=== PATIENT | female | born 1990 | race Caucasian/White ===

== ENCOUNTER 2019-12-12 11:51 | Emergency (ER) | payer SELFPAY ==
--- NOTE | 2019-12-12 12:39 | ER Document Report ---
ED General - General Chief Complaint: Possible Overdose Stated Complaint: POSSIBLE OVERDOSE Time Seen by Provider: 12/12/19 12:07 Primary Care Provider: VIVIENNE GARLAND MD [Primary Care Provider] - Follow up as needed Mode of Arrival: Medic Information source: Patient, Emergency Med Personnel Notes: 29-year-old female presents emergency department with history of anxiety depression and trichotillomania for an overdose. Patient reports she took 800 mg of trazodone 30 mg of meloxicam and 10 mg of Flexeril at approximately 10:00 today. She reports she was not trying to kill himself she was trying to get the high feel numb. Patient reports she is having problems with her ex-. She also reports her 2-year-old daughter would not talk to her today on the phone. She reports her ex- and daughter are living in [place]. Patient reports she is living with a roommate and Dr. Vivienne Quick. Patient reports he is a provider at [employer] [facility] and yesterday he changed her medications to Abilify and Effexor. She reports she took the meds to overdose with from her roommate. 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 She reports she was clean for 2 years. She reports approximately 3 months ago she started taking gabapentin a muscle relaxer and some cough syrup. Patient's received charcoal from EMS and 500 L LR. Her words are slurred and she is confused to the dates. Respiratory rate even unlabored. Patient reports she is hungry now requesting food. - HPI Onset: This morning Onset/Duration: Sudden Quality of pain: No pain Associated symptoms: None Exacerbated by: Denies Relieved by: Denies Similar symptoms previously: Yes Recently seen / treated by doctor: Yes - Related Data Allergies/Adverse Reactions: latex Adverse Reaction (Verified 12/12/19 16:32) Latex, Natural Rubber Adverse Reaction (Verified 12/12/19 16:32) Past Medical History - General Information source: Patient Last Menstrual Period: last week - Social History Smoking Status: Current Every Day Smoker Cigarette use (# per day): No - Vapes nicotine Frequency of alcohol use: None Drug Abuse: None Lives with: Friend Family History: Other - Mother with trichotillomania Patient has suicidal ideation: No - Patient denies Patient has homicidal ideation: No Psychiatric Medical History: Reports: Hx Anxiety, Hx Depression, Other - Trichotillomania Past Surgical History: Reports: Hx Section Review of Systems - Review of Systems Notes: Review HPI for review of systems., All other systems negative Physical Exam - Vital signs Vitals: Resp BP Pulse Ox 22 H 88/58 L 100 12/12/19 13:01 12/12/19 13:01 12/12/19 13:01 - General General appearance: Alert In distress: None - HEENT Head: Normocephalic, Atraumatic Eyes: Normal Conjunctiva: Normal Extraocular movements intact: Yes Pupils: PERRL Pharynx: Normal. No: Erythema, Tonsillar hypertrophy Neck: Normal, Supple. No: Lymphadenopathy - Respiratory Respiratory status: No respiratory distress Chest status: Nontender Breath sounds: Normal Chest palpation: Normal - Cardiovascular Rhythm: Regular Heart sounds: Normal auscultation Murmur: No - Abdominal Inspection: Normal Distension: No distension Bowel sounds: Normal Tenderness: Nontender Organomegaly: No organomegaly - Back Back: Normal, Nontender - Extremities General upper extremity: Normal ROM, Normal strength General lower extremity: Normal ROM, Normal strength - Neurological Neuro grossly intact: Yes Cognition: Normal Orientation: AAOx4 [place] Coma Scale Eye Opening: Spontaneous Jil Coma Scale Verbal: Oriented Jil Coma Scale Motor: Obeys Commands [place] Coma Scale Total: 15 Speech: Normal Cranial nerves: Normal Sensory: Normal - Psychological Associated symptoms: Normal affect, Normal mood - Skin Skin Temperature: Warm Skin Moisture: Dry Skin Color: Normal Location of irregularity: Scalp - Trichotillomania Course - Re-evaluation Re-evalutation: 12/12/19 12:50 29-year-old female presents with overdose of trazodone meloxicam and Flexeril. Poison control was contacted spoke with Filomena at [phone]. She advises cardiac monitoring EKG labs. She also advises ABG and lactate should patient start having abdominal pain and nausea and vomiting. Otherwise repeat acetami nophen level 4 hours post ingestion which would be around 1430. 12/12/19 Patient has been resting all day. Her blood pressure will drop when she is sound asleep but when patient is aroused it will become increased. Laboratory 12/12/19 12/12/19 12/12/19 12:00 12:00 12:46 WBC 4.8 RBC 4.56 Hgb 14.7 Hct 42.5 MCV 93 MCH 32.1 MCHC 34.5 RDW 13.2 Plt Count 169 Lymph % (Auto) 25.2 [place] % (Auto) 6.8 Eos % (Auto) 1.6 Baso % (Auto) 0.4 Absolute Neuts (auto) 3.2 Absolute Lymphs (auto) 1.2 Absolute Monos (auto) 0.3 Absolute Eos (auto) 0.1 Absolute Basos (auto) 0.0 Seg Neutrophils % 66.0 Sodium Potassium Chloride Carbon Dioxide Anion Gap BUN Creatinine Est GFR ( Amer) Est GFR (MDRD) Non-Af Glucose Calcium Total Bilirubin Direct Bilirubin Neonat Total Bilirubin Neonat Direct Bilirubin Neonat Indirect Bili AST ALT Alkaline Phosphatase Total Protein Albumin Serum HCG, Qual Urine Color YELLOW Urine Appearance CLEAR Urine pH 6.0 Ur Specific [place] 1.006 Urine Protein NEGATIVE Urine Glucose (UA) NEGATIVE Urine Ketones NEGATIVE Urine Blood NEGATIVE Urine Nitrite NEGATIVE Urine Bilirubin NEGATIVE Urine Urobilinogen NEGATIVE Ur Leukocyte Esterase NEGATIVE Urine WBC (Auto) 1 Urine RBC (Auto) 0 Squamous Epi Cells Auto <1 Urine Ascorbic Acid NEGATIVE Salicylates Urine Opiates Screen NEGATIVE Urine Methadone Screen NEGATIVE Acetaminophen Ur Barbiturates Screen NEGATIVE Ur Phencyclidine Scrn NEGATIVE Ur Amphetamines Screen NEGATIVE U Benzodiazepines Scrn UNCONFIRMED POSITIVE Urine Cocaine Screen NEGATIVE U Marijuana (THC) Screen UNCONFIRMED POSITIVE Serum Alcohol 12/12/19 12/12/19 12/12/19 12:46 12:46 17:35 WBC RBC Hgb Hct MCV MCH MCHC RDW Plt Count Lymph % (Auto) [place] % (Auto) Eos % (Auto) Baso % (Auto) Absolute Neuts (auto) Absolute Lymphs (auto) Absolute Monos (auto) Absolute Eos (auto) Absolute Basos (auto) Seg Neutrophils % Sodium 141.3 Potassium 4.0 Chloride 103 Carbon Dioxide 29 Anion Gap 9 BUN 9 Creatinine 0.79 Est GFR ( Amer) > 60 Est GFR (MDRD) Non-Af > 60 Glucose 65 L Calcium 9.5 Total Bilirubin 0.5 Direct Bilirubin 0.1 Neonat Total Bilirubin Not Reportable Neonat Direct Bilirubin Not Reportable Neonat Indirect Bili Not Reportable AST 22 ALT 15 Alkaline Phosphatase 60 Total Protein 6.9 Albumin 4.6 Serum HCG, Qual NEGATIVE Urine Color Urine Appearance Urine pH Ur Specific [place] Urine Protein Urine Glucose (UA) Urine Ketones Urine Blood Urine Nitrite Urine Bilirubin Urine Urobilinogen Ur Leukocyte Esterase Urine WBC (Auto) Urine RBC (Auto) Squamous Epi Cells Auto Urine Ascorbic Acid Salicylates < 1.0 L Urine Opiates Screen Urine Methadone Screen Acetaminophen < 10 L < 10 L Ur Barbiturates Screen Ur Phencyclidine Scrn Ur Amphetamines Screen U Benzodiazepines Scrn Urine Cocaine Screen U Marijuana (THC) Screen Serum Alcohol < 10 12/12/19 22:31 Patient resting quietly. Arouses easily to any verbal stimuli. Responds appropriately. 12/12/19 23:37 Patient continues to rest, arouses easily to verbal stimuli. Report given to [facility] Second EKG obtained with no ST elevation no T wave inversion QTC within normal l imits. HR 91 ND 156 QRSD 82 QT 372 QTc 458 - Vital Signs Vital signs: Temp Pulse Resp BP Pulse Ox 98.4 F 17 81/47 L 97 12/12/19 19:37 12/12/19 20:30 12/12/19 20:30 12/12/19 20:30 - Laboratory Result Diagrams: 12/12/19 12:46 12/12/19 12:46 Laboratory results interpreted by me: 12/12/19 12/12/19 12:46 17:35 Glucose 65 L Salicylates < 1.0 L Acetaminophen < 10 L < 10 L Discharge - Discharge Clinical Impression: Overdose Qualifiers: Encounter type: initial encounter Injury intent: undetermined intent Qualified Code(s): T50.904A - Poisoning by unspecified drugs, medicaments and biological substances, undetermined, initial encounter Condition: Stable Disposition: PSYCH HOSP/UNIT Referrals: VIVIENNE GARLAND MD [Primary Care Provider] - Follow up as needed
[2019-12-12 13:04] LABS: ABSOLUTE EOSINOPHILS # (AUTO) 0.1 10^3/uL (0.0-0.6); ABSOLUTE LYMPHOCYTES (AUTO) 1.2 10^3/uL (0.5-4.7); ABSOLUTE MONOCYTES (AUTO) 0.3 10^3/uL (0.1-1.4); ABSOLUTE NEUT (AUTO) 3.2 10^3/uL (1.7-8.2); BASOPHILS % (AUTO) 0.4 % (0-2); EOSINOPHILS % (AUTO) 1.6 % (0-6); HEMATOCRIT 42.5 % (36.0-47.0); HEMOGLOBIN 14.7 g/dL (12.0-15.5); LYMPHOCYTES % (AUTO) 25.2 % (13-45); MEAN CORPUSCULAR HEMOGLOBIN 32.1 pg (27.0-33.4); MEAN CORPUSCULAR HGB CONC 34.5 g/dL (32.0-36.0); MEAN CORPUSCULAR VOLUME 93 fl (80-97); MONOCYTES % (AUTO) 6.8 % (3-13); PLATELET COUNT 169 10^3/uL (150-450); RED BLOOD COUNT 4.56 10^6/uL (3.72-5.28); RED CELL DISTRIBUTION WIDTH 13.2 % (11.5-14.0); TOTAL CELLS COUNTED % (AUTO) 100 %; WHITE BLOOD COUNT 4.8 10^3/uL (4.0-10.5)
[2019-12-12 13:31] LABS: APPEARANCE,URINE CLEAR; BILIRUBIN,URINE NEGATIVE (NEGATIVE); COLOR,URINE YELLOW; GLUCOSE, URINE NEGATIVE (NEGATIVE); KETONES,URINE NEGATIVE (NEGATIVE); LEUKOCYTE ESTERASE,URINE NEGATIVE (NEGATIVE); NITRITE,URINE NEGATIVE (NEGATIVE); PROTEIN,URINE NEGATIVE (NEGATIVE); URINE SPECIFIC GRAVITY 1.006; UROBILINOGEN,URINE NEGATIVE mg/dL (<2.0)
[2019-12-12 13:40] LABS: ALBUMIN 4.6 g/dL (3.5-5.0); ALKALINE PHOSPHATASE 60 U/L (38-126); ANION GAP 9 (5-19); ASPARTATE AMINO TRANSFERASE 22 U/L (14-36); BILIRUBIN,DIRECT 0.1 mg/dL (0.0-0.4); BILIRUBIN,TOTAL 0.5 mg/dL (0.2-1.3); BLOOD UREA NITROGEN 9 mg/dL (7-20); CALCIUM 9.5 mg/dL (8.4-10.2); CARBON DIOXIDE 29 mmol/L (22-30); CHLORIDE 103 mmol/L (98-107); GLUCOSE 65 mg/dL (75-110); TOTAL PROTEIN 6.9 g/dL (6.3-8.2)
[2019-12-12 13:41] LABS: ACETAMINOPHEN < 10 ug/mL (10-30); ALCOHOL < 10 mg/dL (NONE DETECTED); SALICYLATE < 1.0 mg/dL (2.0-20.0)
[2019-12-12 13:47] LABS: URINE AMPHETAMINES SCREEN NEGATIVE; URINE BARBITURATES SCREEN NEGATIVE; URINE COCAINE SCREEN NEGATIVE; URINE METHADONE SCREEN NEGATIVE; URINE PHENCYCLIDINE SCREEN NEGATIVE
[2019-12-12 13:58] LABS: URINE BENZODIAZEPINES SCREEN UNCONFIRMED POSITIVE
[2019-12-12 13:59] LABS: URINE MARIJUANA (THC) SCREEN UNCONFIRMED POSITIVE
--- NOTE | 2019-12-12 15:01 | EKG REPORT ---
SEVERITY:- ABNORMAL ECG - SINUS RHYTHM PROBABLE LEFT ATRIAL ABNORMALITY INFERIOR Q WAVES, PROBABLY NORMAL VARIATION BORDERLINE PROLONGED QT INTERVAL NONSPECIFIC ST-T CHANGES DIFFUSE : Confirmed by: Edgar Pagan MD 12-Dec-2019 15:00:11
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
[2019-12-12] MEDS ORDERED: NORMAL SALINE 1000 ML 1,000 ML IV ONE (17:24)
[2019-12-12] MEDS: VENLAFAXINE HCL 37.5 MG CAP.SR.24H PO SCH (17:49)
[2019-12-12] MEDS: BUSPIRONE HCL 10 MG TABLET PO SCH (18:47)
--- NOTE | 2019-12-13 08:06 | EKG REPORT ---
SEVERITY:- BORDERLINE ECG - SINUS RHYTHM : Confirmed by: Edgar Pagan MD 13-Dec-2019 08:05:41
[2019-12-13] MEDS: VENLAFAXINE HCL 37.5 MG CAP.SR.24H PO SCH (09:23)
[2019-12-13] MEDS: BUSPIRONE HCL 10 MG TABLET PO SCH (09:23)
--- NOTE | 2019-12-13 11:03 | ER Document Report ---
Doctor's Note Notes: 12/13/19 11:02 Patient is sleeping at this time in no acute distress. Awaiting evaluation by psychiatric team today
[2019-12-13 16:14] VITALS: BP 99/74
== END 2019-12-13 16:16 | disposition home or self-care (01) ==
LOC: ER 11:51
DX: T43.214A Poisoning by selective serotonin and norepinephrine reuptake inhibitors, undetermined, initial encounter (principal); T39.394A Poisoning by other nonsteroidal anti-inflammatory drugs [NSAID], undetermined, initial encounter; T48.1X4A Poisoning by skeletal muscle relaxants [neuromuscular blocking agents], undetermined, initial encounter; Y92.009 Unspecified place in unspecified non-institutional (private) residence as the place of occurrence of the external cause; F41.9 Anxiety disorder, unspecified; F32.9 Major depressive disorder, single episode, unspecified; F63.3 Trichotillomania; Z91.040 Latex allergy status; F17.290 Nicotine dependence, other tobacco product, uncomplicated
CPT/HCPCS: 93005; 99285; 36415; 80307 ×4; 84703; 85025; 80053; 81001; 93010; J3490 ×2; J7030